=== PATIENT | female | born 1975 | race Caucasian/White ===

== ENCOUNTER 2018-05-11 14:08 | Observation (INO) | payer OTHER ==
--- NOTE | 2018-05-11 15:25 | EDPHY ---
General Time Seen by Provider: 05/11/18 15:24 Narrative: CLINICAL IMPRESSION: Acute left parotitis ASSESSMENT/PLAN: Patient is a 43-year-old female with no significant medical history who presents to the emergency department with runny nose, congestion, cough, left- sided facial pain and swelling. Patient is afebrile, she is uncomfortable appearing however not toxic-appearing. Her oropharynx is clear, there is obvious edema to the left face with overlying erythema extending into the anterior neck. CBC revealed no evidence of leukocytosis. Her vital signs were reviewed, no findings suggestive of sepsis or serious bacterial illness. BMP grossly unremarkable. CT soft tissue neck revealed acute parotitis of the left side, no evidence of abscess or deep space infection. This case was discussed with ENT Bell Leonard who also discussed with Dr. Nagy. Recommendation for Unasyn , steroids and gentle frequent massage. The patient will be admitted to the hospitalist service for further observation and management, I spoke directly with Dr. Raya who will be the admitting physician. ENT will consult during admission. She was given her 1st dose of Unasyn and Decadron in the emergency department, her pain improved with 1 dose of narcotic. She remained hemodynamically stable under my care and prior to transfer to the floor. DIFFERENTIAL DX: Differential diagnosis including but not limited to and in no particular order influenza, mastoiditis, pharyngitis, retropharyngeal abscess, sialoadenitis, parotitis, deep space infection, pneumonia, sepsis ED COURSE: 1535: Discussed with Dr. Jon CHIEF COMPLAINT: Fever, runny nose, congestion, cough and facial swelling HPI: Patient is a 43-year-old female with no significant medical history who presents to the emergency department with runny nose, congestion and cough that has been ongoing for 4 days. Patient reports yesterday she noticed some facial swelling and sore throat, is has progressively worsened. She has taken Tylenol and ibuprofen without relief of her pain. She reports significant increased swelling in her face today, T-max of 100.3 degrees. Patient has had low appetite, difficulty with solid secondary to sore throat and pain in jaw. Patient denies any headache, dizziness, neck stiffness, difficulty passing secretions or shortness of breath. She has had no nausea or vomiting and denies any abdominal pain. There are multiple people in her household that are sick with similar upper respiratory symptoms and cough people she did not get an influenza vaccine this year. PMH: Denies Pertinent Past Surgical History: Denies Family History: Noncontributory Social History: Occasional alcohol, denies illicit drug use or cigarette smoking REVIEW OF SYSTEMS: All other systems negative Constitutional: Fever, decreased appetite. Eyes: No discharge, vision change ENT: Runny nose, congestion, sore throat, left ear pain. Cardiovascular: No chest pain, no palpitations. Respiratory: Cough, no shortness of breath. Gastrointestinal: No abdominal pain, no vomiting, diarrhea. Genitourinary: No hematuria, dysuria, flank pain, pelvic pain Musculoskeletal: No back pain, joint swelling, joint pain, myalgias. Skin: No rashes, color change. Neurological: No headache, dizziness, weakness. PHYSICAL EXAM: General Appearance: Patient is tired appearing however not toxic-appearing. HENT: Normocephalic, atraumatic. Bilateral external ears are normal. Bilateral tympanic membranes are normal with pearly mcclellan reflex. There is no mastoid tenderness to palpation, no erythema along the mastoid. Nares are clear, mucosa is pink. There is obvious facial swelling along the left side from the TMJ extending down into the left anterior neck. There is overlying erythema and mild calor. Oropharynx is clear, uvula is midline. There is no tonsillar enlargement or exudate. The dentition is normal. Mild trismus. Her phonation is normal. Eyes: PERRLA, no acute vision change, nystagmus, swelling, discharge, pain or photosensitivity. Conjunctiva pink, no pallor or injection Neck: Supple, nontender, mild tender anterior lymphadenopathy, no midline pain, FROM, no meningismus. Respiratory: There are no retractions, lungs are clear to auscultation. Cardiac: Regular rate and rhythm, no murmurs or gallops. Gastrointestinal: Abdomen is soft, nontender, bowel sounds normal, no masses/ hernia, no rigidity, guarding or focal peritoneal findings. Neurological: Alert and oriented x 3, CN 2-12 grossly intact, normal gait no ataxia, DTR's intact, normal sensation and strength Skin: Warm, dry, no rashes, no nodules on palpation. Musculoskeletal: Extremities are symmetrical, full range of motion, no tenderness, deformity, swelling, or erythema. Psychiatric: Patient is oriented X 3, there is no agitation. MEDICAL DECISION MAKING: Patient was seen independently. Secondary supervising physician at time of evaluation was Dr. Jon. Diagnosis: Acute left parotitis . New, requires workup Summary: See Assessment and Plan for summary of ED visit Clinical lab tests: ordered / reviewed. Independent visualization of images, tracing, or specimens: Yes. Decision to obtain medical records or history from someone other than the patient: No Review / Summarize previous medical records: Yes Discussed patient with another provider: Yes, Dr. Jon Patient Progress: Stable, admit. - Diagnostics Imaging Results: Imaging Impressions Neck CT 05/11/18 15:35 Impression: 1. Moderate enlargement of the left parotid gland with surrounding edema suggestive of inflammatory process/infection/parotiditis. Findings discussed with MARIAN Rivera at 16:36 hour, 05/11/2018. - History Smoking Status: Never smoked - Objective Vital Signs: Initial Vital Signs Temperature (C) 37.1 C 05/11/18 14:11 Heart Rate 91 05/11/18 14:11 Respiratory Rate 18 05/11/18 14:11 Blood Pressure 148/97 H 05/11/18 14:11 O2 Sat (%) 97 05/11/18 14:11 O2 Delivery Mode Room Air Allergies/Adverse Reactions: No Known Allergies Allergy (Unverified 10/29/13 10:57) Home Medications: Medication Instructions Recorded Aspirin 81mg (OTC) 12/04/14 Atorvastatin Calcium 12/04/14 Hydrocodone/APAP 5/325 [[place] 1 - 2 tab PO Q4H PRN #15 tab 12/04/14 5/325 (*)] Lisinopril 12/04/14 Metformin 1000 mg 12/04/14 Laboratory Results: Laboratory Results 05/11/18 15:40 05/11/18 15:40 05/11/18 05/11/18 05/11/18 15:50 15:47 15:44 WBC RBC Hgb POC Hgb 14.6 gm/dL gm/dL (12.6-16.3) Hct POC Hct 43 % % (38-47) MCV MCH MCHC RDW Plt Count MPV Neut % (Auto) Lymph % (Auto) [place] % (Auto) Eos % (Auto) Baso % (Auto) Nucleat RBC Rel Count Absolute Neuts (auto) Absolute Lymphs (auto) Absolute Monos (auto) Absolute Eos (auto) Absolute Basos (auto) Absolute Nucleated RBC Immature Gran % Immature Gran # POC Sodium 141 mEq/L mEq/L (135-145) Sodium POC Potassium 3.5 mEq/L mEq/L (3.3-5.0) Potassium POC Chloride 103 mEq/L mEq/L (97-110) Chloride Carbon Dioxide POC Total CO2 27 mEq/L mEq/L (22-31) Anion Gap POC BUN 8 mg/dL mg/dL (7-23) BUN Creatinine POC Creatinine 0.6 mg/dL mg/dL (0.6-1.0) Estimated GFR Glucose POC Glucose 83 mg/dL mg/dL (70-100) Calcium POC Troponin I 0.01 ng/mL ng/mL (0.00-0.08) Beta HCG, Qual Nasal Influenza A PCR NEGATIVE FOR FLU A (NEGATIVE) Nasal Influenza B PCR NEGATIVE FOR FLU B (NEGATIVE) 05/11/18 05/11/18 05/11/18 15:40 15:40 15:40 WBC 6.76 10^3/uL 10^3/uL (3.80-9.50) RBC 4.92 10^6/uL 10^6/uL (4.18-5.33) Hgb 14.0 g/dL g/dL (12.6-16.3) POC Hgb Hct 41.3 % % (38.0-47.0) POC Hct MCV 83.9 fL fL (81.5-99.8) MCH 28.5 pg pg (27.9-34.1) MCHC 33.9 g/dL g/dL (32.4-36.7) RDW 12.5 % % (11.5-15.2) Plt Count 366 10^3/uL 10^3/uL (150-400) MPV 8.9 fL fL (8.7-11.7) Neut % (Auto) 82.2 % H % (39.3-74.2) Lymph % (Auto) 12.7 % L % (15.0-45.0) [place] % (Auto) 4.6 % % (4.5-13.0) Eos % (Auto) 0.3 % L % (0.6-7.6) Baso % (Auto) 0.1 % L % (0.3-1.7) Nucleat RBC Rel Count 0.0 % % (0.0-0.2) Absolute Neuts (auto) 5.55 10^3/uL 10^3/uL (1.70-6.50) Absolute Lymphs (auto) 0.86 10^3/uL L 10^3/uL (1.00-3.00) Absolute Monos (auto) 0.31 10^3/uL 10^3/uL (0.30-0.80) Absolute Eos (auto) 0.02 10^3/uL L 10^3/uL (0.03-0.40) Absolute Basos (auto) 0.01 10^3/uL L 10^3/uL (0.02-0.10) Absolute Nucleated RBC 0.00 10^3/uL 10^3/uL (0-0.01) Immature Gran % 0.1 % % (0.0-1.1) Immature Gran # 0.01 10^3/uL 10^3/uL (0.00-0.10) POC Sodium Sodium 138 mEq/L mEq/L (135-145) POC Potassium Potassium 4.0 mEq/L mEq/L (3.5-5.2) POC Chloride Chloride 105 mEq/L mEq/L (97-110) Carbon Dioxide 25 mEq/l mEq/l (22-31) POC Total CO2 Anion Gap 8 mEq/L mEq/L (6-14) POC BUN BUN 10 mg/dL mg/dL (7-23) Creatinine 0.7 mg/dL mg/dL (0.6-1.0) POC Creatinine Estimated GFR > 60 Glucose 83 mg/dL mg/dL (70-100) POC Glucose Calcium 8.8 mg/dL mg/dL (8.5-10.4) POC Troponin I Beta HCG, Qual NEGATIVE Nasal Influenza A PCR Nasal Influenza B PCR Medications Given: Discontinued Medications Dexamethasone (Decadron Injection) 12 mg IVP EDNOW ONE Stop: 05/11/18 16:49 Last Admin: 05/11/18 16:57 Dose: 12 mg Hydromorphone HCl (Dilaudid) 0.5 mg IVP EDNOW ONE Stop: 05/11/18 15:34 Last Admin: 05/11/18 15:47 Dose: 0.5 mg Sodium Chloride (Ns) 1,000 mls @ 0 mls/hr IV ONCE ONE PRN Reason: Wide Open Stop: 05/11/18 15:34 Last Admin: 05/11/18 15:48 Dose: 1,000 mls Point of Care Test Results: Chemistry 05/11/18 05/11/18 15:47 15:44 POC Sodium 141 mEq/L mEq/L (135-145) POC Potassium 3.5 mEq/L mEq/L (3.3-5.0) POC Chloride 103 mEq/L mEq/L (97-110) POC Total CO2 27 mEq/L mEq/L (22-31) POC BUN 8 mg/dL mg/dL (7-23) POC Creatinine 0.6 mg/dL mg/dL (0.6-1.0) POC Glucose 83 mg/dL mg/dL (70-100) POC Troponin I 0.01 ng/mL ng/mL (0.00-0.08) ISTAT H&H 05/11/18 15:47 POC Hgb 14.6 gm/dL gm/dL (12.6-16.3) POC Hct 43 % % (38-47) Departure - Departure Disposition: [facility] Acute Clinical Impression: Parotitis, acute
[2018-05-11] MEDS ORDERED: HYDROmorphONE/DILAUDID 2 MG/ML INJ IVP ONE (15:33)
[2018-05-11] MEDS ORDERED: NS 1,000 ML IV ONE (15:33)
[2018-05-11 15:50] LABS: PLATELET COUNT 366 10^3/uL (150-400)
[2018-05-11] MEDS ORDERED: IOPAMIDOL (ISOVUE-300) 100 ML BTL ONE (15:56)
[2018-05-11] MEDS ORDERED: DEXAMETHASONE 10 MG/ML VIAL IVP ONE (16:48)
[2018-05-11] MEDS ORDERED: ONDANSETRON 4 MG/2 ML VIAL IVP PRN (16:54)
[2018-05-11] MEDS ORDERED: ONDANSETRON DISINTEGRATING 4 MG TAB PO PRN (16:54)
[2018-05-11] MEDS ORDERED: CEPACOL LOZENGE PO PRN (17:53)
[2018-05-11] MEDS ORDERED: AMPICILLIN/SULBACTAM 3 GM in NS 100 ML IV SCH (18:00)
--- NOTE | 2018-05-11 18:14 | GHP ---
[f rep st] HISTORY AND PHYSICAL DATE OF ADMISSION: 05/11/2018 CHIEF COMPLAINT: Parotiditis. HISTORY OF PRESENT ILLNESS: A 43-year-old female, with no past medical history presents with fevers and left facial swelling. History obtained with an in- person dobie worker. Endorses runny nose and cough for 4 days with white sputum. Has had chills, fevers, and headache. Developed left facial swelling yesterday, but it progressed rapidly today. It is very painful, stabbing in nature. No recent dental procedures. Her son and have recently been ill with URI. No nausea, vomiting, or diarrhea. Positive myalgias. No dysuria. Sore throat, but it does not feel like it is closing up. REVIEW OF SYSTEMS: I completed a 10-point review of systems, negative except as noted in HPI. PAST MEDICAL HISTORY: None. PAST SURGICAL HISTORY: Two C sections. SOCIAL HISTORY: Lives with her and 3 kids in [place]. 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 Occasional alcohol, once a week. No tobacco or illicits. FAMILY HISTORY: Mother of diabetes, high blood pressure. Father is living and healthy. HOME MEDICATIONS: None. ALLERGIES: None. PHYSICAL EXAMINATION: VITAL SIGNS: Temperature 37.1, blood pressure 128/71, heart rate in the 90s, respirations 18, 96% on room air. GENERAL: Sitting in bed, in no acute distress. HEENT: PERRLA. Oropharynx is clear. Significant left facial swelling most noted on left TMJ, extending to anterior neck. There is mild erythema. Tenderness with palpation. Mild trismus. No stridor. Tympanic membranes normal. CV: Regular rate and rhythm. LUNGS: Clear. ABDOMEN: Soft, nontender. : No Gonzalez. MUSCULOSKELETAL: 5/5 upper and lower extremity strength. NEURO: 2 through 12 intact. PSYCH: Alert and oriented x3. LYMPH NODES: Positive cervical lymphadenopathy. LABS: Negative influenza. WBC 6, hemoglobin 14, hematocrit 41, platelets 369. Sodium 141, potassium 3.5, chloride 103, creatinine 0.6, glucose 83. Negative . Neck CT: Moderate enlargement of the left parotid gland with surrounding edema suggestive of parotiditis. ASSESSMENT AND PLAN: 1. Acute parotiditis: airway is patent. Dr. Nagy with ENT will evaluate patient tomorrow. IV Unasyn, Decadron. Toradol for pain control. Liquid diet. No evidence of sepsis. 2. Deep venous thrombosis prophylaxis: Low risk. 3. Diet liquid. DISPOSITION: Inpatient admission for acute parotiditis requiring IV antibiotics and ENT evaluation. /[id number]/MODL MTDD
[2018-05-11] MEDS: ACETAMINOPHEN 325 MG TAB PO PRN (18:47)
[2018-05-11] MEDS: KETOROLAC 30 MG/1 ML SDV IVP PRN (18:47)
[2018-05-11] MEDS: DEXAMETHASONE 10 MG/ML VIAL IVP SCH (22:23)
[2018-05-12] MEDS: ACETAMINOPHEN 325 MG TAB PO PRN ×3 (00:06→10:25)
[2018-05-12] MEDS: AMPICILLIN/SULBACTAM 3 GM in NS 100 ML IV SCH ×2 (00:07→06:20)
[2018-05-12] MEDS: KETOROLAC 30 MG/1 ML SDV IVP PRN ×2 (00:43→06:28)
[2018-05-12] MEDS: DEXAMETHASONE 10 MG/ML VIAL IVP SCH (06:20)
[2018-05-12 08:17] VITALS: BP 112/71
--- NOTE | 2018-05-12 08:30 | SOAPPROG ---
SOAP Progress Note Assessment/Plan: Assessment: Pt with left parotitis. Ok to go home today on PO meds. Gave script for Augmentin 875 and dexamethasone 8mg x2d, 4mg x 2d. Encouraged hydration, sialogogue candy, heat and massage. Plan: F/u in office this week. 05/12/18 08:32 Subjective: Hx obtained through a bill recapitulation clerk. pt with 5 days of URI symptoms, cough, nasal congestion. Then Saturday increased left cheek pain. Saturday extreme cheek pain and swelling. Pain with opening jaw. Came in to ED. Also complained of fevers, chills and bitter taste in mouth. Never had before. Objective: Vital Signs Temp Pulse Resp BP Pulse Ox 36.5 C 66 17 112/71 95 05/12/18 08:00 05/12/18 08:00 05/12/18 08:00 05/12/18 08:00 05/12/18 08:00 05/11/18 05/12/18 05/13/18 05:59 05:59 05:59 Intake Total 2250 Balance 2250 Pt resting comfortably in bed. VSS, No submandibular swelling. No LAD. Ear exam normal TM visualized without bulging or erythema. OP without erythema or exudates. Diffusely enlarged left face over angle of mandible, Palpable parotid gland. Mildly TTP. No purulence able to be expressed from stensen's duct or elgin's duct. - Pending Discharge Pending Discharge Within 24 Hours: Yes Pending Discharge Date: 05/13/18 Pending Discharge Time: 11:00 ICD10 Worksheet Patient Problems: Problems Problem Status Onset Parotitis, acute Acute
--- NOTE | 2018-05-12 08:59 | PDCONSULT ---
Automobile Racer Note: Assessment: Pt with left parotitis. Ok to go home today on PO meds. Gave script for Augmentin 875 and dexamethasone 8mg x2d, 4mg x 2d. Encouraged hydration, sialogogue candy, heat and massage. Plan: F/u in office this week. 05/12/18 08:32 Subjective: Hx obtained through a adult educator. pt with 5 days of URI symptoms, cough, nasal congestion. Then Saturday increased left cheek pain. Saturday extreme cheek pain and swelling. Pain with opening jaw. Came in to ED. Also complained of fevers, chills and bitter taste in mouth. Never had before. Objective: Vital Signs Temp Pulse Resp BP Pulse Ox 36.5 C 66 17 112/71 95 05/12/18 08:00 05/12/18 08:00 05/12/18 08:00 05/12/18 08:00 05/12/18 08:00 05/11/18 05/12/18 05/13/18 05:59 05:59 05:59 Intake Total 2250 Balance 2250 Pt resting comfortably in bed. VSS, No submandibular swelling. No LAD. Ear exam normal TM visualized without bulging or erythema. OP without erythema or exudates. Diffusely enlarged left face over angle of mandible, Palpable parotid gland. Mildly TTP. No purulence able to be expressed from stensen's duct or elgin's duct.
--- NOTE | 2018-05-12 11:12 | PDDCSUM ---
Discharge Summary Discharge Summary: Date of Admission: 05/11/2018 Date of Discharge: 05/12/2018 Consultants: ENT Studies: CT neck Discharge Diagnoses: 1. Acute parotiditis Brief Hospital Course: 43yo healthy italian speaking F presented with several days of URI type symptoms , fevers, and acute onset left facial/cheek swelling and pain. Neck CT showed inflammation of the left parotid gland with a patent airway. She was started on IV unasyn, decadron. ENT was consulted. Her symptoms improved and she was felt safe for discharge to complete a course of Augmentin and PO steroids. She will follow up with ENT. She was encouraged hydration, sialogogue candy, heat and massage. Medications: Please refer to EMR for complete list. ENT provided prescriptions for Augmentin 875mg BID and dexamethasone 8mg x2 days, then 4mg x2 days. Follow Up Plan: 1. ENT clinic visit in 1 week Physical Exam: Vitals reviewed, afebrile. Alert and oriented, rrr without m/r/g , lungs clear, abdomen soft and nt, no rashes, no edema, left cheek swelling.
== END 2018-05-12 12:30 | disposition home or self-care (01) ==
LOC: INTOOBSV 16:51 → OBSVTOIN 16:51 → FOB 18:00
PROVIDERS: ADMIT Internal Medicine; ATTEND Internal Medicine
DX: K11.20 Sialoadenitis, unspecified (principal)
CPT/HCPCS: 82435-PO; 82565-PO; 82947-PO; 84132-PO; 84295-PO; 84484-ER; 84520-PO; 85014-ER; 96365; G0378; J0295; J1100; J1170; J1885; Q9967